=== PATIENT | female | born 1985 | race Caucasian/White ===

== ENCOUNTER → 2018-05-03 | Day surgery (SDC) | payer MEDICARE ==
[~2018-05-03] VITALS: Ht 154.9 cm; Wt 108.9 kg
[~2018-05-03] MED LIST: BUSPAR15 MG PO; IMODIUM A-D2 M2 PO; LAMICTAL200 MG PO; PROZAC20 MG PO; RELPAX20 MG PO; TOPAMAX200 MG PO; [UNRECOGNIZED DRUG - OTHER] PO
[2018-05-03 07:45] VITALS: BP 124/72
[2018-05-03 09:14] VITALS: BP 115/72
[2018-05-03 09:29] VITALS: BP 114/66
[2018-05-03 09:44] VITALS: BP 115/43
== END | disposition home or self-care (01) ==
LOC: SDC 04-16 16:15
DX: K29.50 Unspecified chronic gastritis without bleeding (principal); J45.909 Unspecified asthma, uncomplicated; G43.909 Migraine, unspecified, not intractable, without status migrainosus; G47.30 Sleep apnea, unspecified; K58.9 Irritable bowel syndrome, unspecified; E66.01 Morbid (severe) obesity due to excess calories; F31.9 Bipolar disorder, unspecified; Z90.49 Acquired absence of other specified parts of digestive tract; Z98.890 Other specified postprocedural states; Z99.89 Dependence on other enabling machines and devices; Z79.899 Other long term (current) drug therapy; Z68.42 Body mass index [BMI] 45.0-49.9, adult